=== PATIENT | male | born 1960 | race Asian ===

== ENCOUNTER 2019-05-06 16:03 | Inpatient (IN) | payer OTHER, MEDICAID ==
[~2019-05-06] VITALS: Ht 165.1 cm; Wt 77.1 kg
[2019-05-06 16:06] VITALS: Ht 165.1 cm; Wt 77.1 kg
--- NOTE | 2019-05-06 16:21 | NUR ---
PATIENT YENIFER [facility] COMING FROM [facility] WITH C/O CHEST PRESSURE THAT STARTED APPROXIMATELY 1330. PER PATIENT, HE HAD A SIMILAR INCIDENT 2 DAYS AGO. DENIES THE PAIN RADIATES ELSEWHERE. DENIES PAIN EXCEPT FOR THE CHEST AREA. STS THAT HE DOES NOT HAVE ANY SI, STS THAT HE IS STRESSED. STS THAT HE HAS ANXIETY FOR THE PAST [address] MARTELL AT BEDSIDE PERFORMED MSE
[2019-05-06 16:44] LABS: CALCIUM 9.1 mg/dL (8.5-10.1); CARBON DIOXIDE 29.4 mmol/L (21-32); CHLORIDE SERUM 100 mmol/L (98-107); CREATININE SERUM 0.8 mg/dL (0.7-1.3); GFR1 > 60 mL/min; GLUCOSE SERUM 268 mg/dL (74-106); SODIUM SERUM 137 mmol/L (136-145)
[2019-05-06 16:49] LABS: ALKALINE PHOSPHATASE 52 U/L (46-116); ALT/SGPT 39 U/L (16-63); AST/SGOT 12 U/L (15-37); BILIRUBIN TOTAL 0.2 mg/dL (0.20-1.00); TOTAL PROTEIN, SERUM 6.7 g/dL (6.4-8.2)
[2019-05-06 16:54] LABS: ALBUMIN 3.3 g/dL (3.4-5.0)
[2019-05-06 16:55] LABS: BASOPHIL % 0.2 % (0-2); PLATELET COUNT 252 x10^3mcL (130-400)
[2019-05-06 16:58] LABS: RED CELL DISTRIBUTION WIDTH 14.7 % (11.5-14.5)
[2019-05-06 17:05] LABS: T3 TOTAL 0.85 ng/mL
[2019-05-06 17:13] LABS: FREE T4 1.04 ng/dL (0.76-1.46); FREE THYROXINE INDEX 2.2 ug/dL (1.4-4.5); T4(THYROXINE) 6.4 ug/dL (4.7-13.3)
[2019-05-06 17:25] LABS: AMPHETAMINE QUAL UR NONE DETECTED (See below)
--- NOTE | 2019-05-06 17:35 | NUR ---
PATIENT RESTING AT BEDSIDE IN NAD. FAMILY AT BEDSIDE
--- NOTE | 2019-05-06 19:12 | NUR ---
REPORT RECIEVED FROM ANUJ RN. PT AWAKE AND ALERT, ANSWERING QUESTIONS APPROPRIATELY, SPEAKING IN FULL SENTENCES. PT REPORTS PAIN AT 4/10. VSS, RESPS E/U, NAD NOTED AT THIS TIME. NS RUNNING AT 150ML/HR. CALL LIGHT W/IN REACH. FAMILY AT BEDSIDE. WILL CONTINUE TO MONITOR.
--- NOTE | 2019-05-06 19:20 | NUR ---
REPORT OFF TO JOSY ZAZUETA
[2019-05-06] MEDS ORDERED: AMBIEN5 MG PO (21:16)
[2019-05-06] MEDS ORDERED: RISPERDAL0.25 MG (21:17)
--- NOTE | 2019-05-06 21:19 | NUR ---
SPOKE TO ED RN FROM [facility] TO PROVIDE UPDATE THAT PT WILL BE ADMITTED HERE.
--- NOTE | 2019-05-06 22:32 | NUR ---
REPORT GIVEN TO DEANDRA FERRIS
--- NOTE | 2019-05-06 22:54 | NUR ---
RECEIVED PT VIA [employer] FROM E/D, ACCOMPANIED BY RN AND TRANSPORTER. PT A/A/O X 4, COOPERATIVE TO CARE AT THIS TIME; EPISODES OF ANXIETY AMB VERBALIZATION OF VARIOUS HEALTH CONCERNS; CHANGES TO FLAT AFFECT DURING SAME CONVERSATION; DENIES S/I; ELOPEMENT RISK; SLUGGISH RESPONSES TO QUESTIONS; WEARS GLASSES (NOT W/ PT). PT W/ GENERALIZED WEAKNESS BUT ABLE TO AMBULATE W/ SLOW, STEADY GAIT; FALL RISK PROTOCOL IN PLACE. ON TELE # 4, HR 104, ST W/ ELEVATED T-WAVES, STATES INTERMITTENT CHEST PRESSURE 3/10 EXACERBATED BY NOTHING, BUT MODERATELY RELIEVED BY PAIN MEDICATION. NO ACUTE RESPIRATORY DISTRESS NOTED. ABD SOFT, ROUND, NON-TENDER, NORMOACTIVE BOWEL SOUNDS X 4 QUADS, LAST BM 05/05/19, LOOSE; REPORTS POOR PO INTAKE > 1 MONTH. IV SITE LH 20G, CDI. ORIENTED PT TO ROOM, BED CONTROLS, CALL LIGHT SYSTEM. SIDE RAILS UP X 2, BED IN LOW POSITION. WILL ENDORSE TO JOSY LIRIANO.
[2019-05-06 23:35] LABS: MAGNESIUM 2.2 mg/dL (1.8-2.4); PHOSPHOROUS 3.6 mg/dL (2.5-4.9)
--- NOTE | 2019-05-06 23:36 | NUR ---
PT COMPLAINS OF INSOMNIA, ADMINISTERED AMBIEN PER PHYSICIANS ORDER, WILL CONTINUE TO MONITOR.
[2019-05-06 23:39] VITALS: BP 138/88
--- NOTE | 2019-05-07 01:23 | NUR ---
PT SLEEPING IN BED WITH NO ACUTE DISTRESS NOTED AT THIS TIME, RESPIRATIONS EVEN AND INLABORED, SAFETY PRECAUTIONS IN PLACE, WILL CONTIUE TO MONITOR
[2019-05-07 01:36] LABS: microscopic required? NO
[2019-05-07 01:44] LABS: UA SPECIFIC GRAVITY 1.025 (1.005-1.035); urine erythrocyte NEGATIVE (NEGATIVE)
--- NOTE | 2019-05-07 02:40 | NUR ---
PT REMOVED CLOTHING AND URINATED ON FLOOR, REORIENTED PT AND TOOK PT TO RESTROOMS CALLED EVS AND FLOOR WAS CLEANED, PT LINENS AND GOWN REPLACED AND PT CLEANED AND RETURNED TO BED, SAFETY PRECAUTIONS IN PLACE, BED ALARM ON, WILL CONTINUE TO MONITOR.
[2019-05-07] MEDS ORDERED: SEROQUEL100 MG PO (04:57)
[2019-05-07] MEDS ORDERED: ZOLOFT100 MG PO (04:57)
[2019-05-07] MEDS ORDERED: RISPERIDONE2 M1 PO (04:57)
[2019-05-07] MEDS ORDERED: VIS25 PO (04:57)
--- NOTE | 2019-05-07 05:08 | NUR ---
PT HAD ONE EPISODE OF DISORIENTATION WHEN HE GOT UP IN THE MIDDLE OF THE NIGHT AND URINATED ON THE FLOOR, BUT PT WAS REORIENTED AND CLEANED UP AND WENT BACK TO BED, PT DENIED CHEST PAIN AND SOB THROUGH REMAINDER OF SHIFT, SAFETY PRECAUTIONS IN PLACE, WILL CONTINUE TO MONITOR
[2019-05-07 06:20] VITALS: BP 135/87
[2019-05-07 06:34] LABS: BASOPHIL % 0.3 % (0-2); PLATELET COUNT 230 x10^3mcL (130-400)
[2019-05-07 06:36] LABS: CALCIUM 8.6 mg/dL (8.5-10.1); CARBON DIOXIDE 30.3 mmol/L (21-32); CHLORIDE SERUM 104 mmol/L (98-107); CREATININE SERUM 0.7 mg/dL (0.7-1.3); GFR1 > 60 mL/min; GLUCOSE SERUM 184 mg/dL (74-106); POTASSIUM SERUM 4.2 mmol/L (3.5-5.1); SODIUM SERUM 140 mmol/L (136-145)
[2019-05-07 06:43] LABS: RED CELL DISTRIBUTION WIDTH 15.1 % (11.5-14.5)
--- NOTE | 2019-05-07 07:00 | NUR ---
RECEIVED BEDSIDE REPORT FROM EXTRACTION OPERATOR NURSE. PATIENT IS STABLE NO APPARENT SIGNS OF PAIN, SOB, OR RSPIRATORY DISTRESS, ON ROOM AIR. IV TO LEFT HAND IN SALINE THERESA. NO EDEMA OR ERYTHEMA NOTED TO SITE. PATIENT IS RSTING COMFORTABLY IN BED. CALL LIGHT AND PHONE WITHIN REACH, BED IN LOW POSITION. SAFETY PRECAUTIONS IN PLACE.
--- NOTE | 2019-05-07 07:25 | NUR ---
PHYSICAL ASSESSMENT COMPLETED.PLEASE SEE PROBLEM FOCUED CARE FOR DETAILS.
--- NOTE | 2019-05-07 08:22 | NUR ---
PATIENT IS STABLE NO APPARENT SIGNS OF PAIN, SOB, OR RESPIRATORY DISTRESS. PATIENT RESTING COMFORTABLY IN BED. DENIES OTHER NEEDS AT THIS TIME. HELPED PATIENT DIAL PHONE NUMBER TO CONTACT MOTHER. QUESTIONS AND CONCERNS ADDRESSED. SAFETY PRECAUTIONS IN PLACE.
--- NOTE | 2019-05-07 10:00 | NUR ---
ADMINISTERED MEDICATION PER EMAR. PATIENT EDUCATED ON NEED FOR MEDICATION WELL ADVERSE EFFECTS TO REPORT. PATIENT VERBALIZED UNDERSATNDING. TOLORTATED WELL. QUESTIONS AND CONCERNS ADDRESSED. PATIENT DENIES OTHER NEEDS AT THIS TIME. SAFETY PRECAUTIONS IN PLACE.
--- NOTE | 2019-05-07 12:21 | NUR ---
PATIENT ASKING TO SHOWER. SPOKE WITH MD ORTIZ HE WILL PLACE ORDER TO SHOWER.
[2019-05-07 12:49] VITALS: BP 140/94
--- NOTE | 2019-05-07 13:25 | NUR ---
PATIENT TAKE A SHOWER. IV COVERED. TELE REMOVED. PATIENT GIVEN TOWELS AND WASH CLOTH, NEW GOWN. QUESTIONS AND CONCERNS ADDRESSED. SAFETY PRECAUTIONS IN PLACE.
--- NOTE | 2019-05-07 14:10 | NUR ---
PATIENT OUT OF SHOWER. TOLORATED WELL. PLACED TELE. SAFETY PRECAUTIONS IN PLACE. QUESTIONS AND CONCERNS ADDRESSED. DENIES OTHER NEEDS AT THIS TIME.
--- NOTE | 2019-05-07 14:14 | NUR ---
FAMILY AT BEDSIDE. PATIENT IS STABLE NO APPARENT SIGNS OF PAIN, SOB, OR RESPIRATORY DISTRESS. DENIES OTHER NEEDS AT THIS TIME. SAFETY PRECAUTIONS IN PLACE.
--- NOTE | 2019-05-07 15:32 | NUR ---
MD ORTIZ AT BEDSIDE DISCUSSING CARE PLAN WITH PATIENT.
--- NOTE | 2019-05-07 15:33 | NUR ---
RECEIVED TRANSFER ORDER FOR PATIENT TO BE TRANSFERRED FROM TELE TO MED SURG. REMOVED AND RETURNED TELE. QUESTIONS AND CONCERNS ADDRESSED. SAFETY PRECAUTIONS IN PLACE. FAMILY AT BEDSIDE.
[2019-05-07 16:13] VITALS: BP 140/94
--- NOTE | 2019-05-07 17:43 | NUR ---
PATIENT IS STABLE, NO APPARENT SIGN SOF PAIN, SOB, OR RESPIRATORY DISTRESS. ON ROOM AIR. PATIENT PATIENT GIVEN DISCHARGE INSTRUCTINS. PATIENT AND FAMILY VERBALIZED INSTRUCTIONS. ALL PERSONAL BELONGINGS WITH PATIENT. IV REMOVED. ID BANDS REMOVED. PATIENT TAKEN DOWN TO LOBBY VIA WHEELCHAIR BY SALES REPRESENTATIVE [facility]. DISCHARGE COMPLETE.
[2019-05-07 17:47] VITALS: BP 144/98
== END 2019-05-07 18:00 | disposition home or self-care (01) | DRG 313 ==
LOC: ED 16:03 → DU 21:52 → MU 05-07 17:20
PROVIDERS: Emergency Medicine; ADMIT Internal Medicine
DX: R07.9 Chest pain, unspecified (principal); E44.0 Moderate protein-calorie malnutrition; F41.8 Other specified anxiety disorders; E11.65 Type 2 diabetes mellitus with hyperglycemia; F20.9 Schizophrenia, unspecified; Z68.28 Body mass index [BMI] 28.0-28.9, adult; Z79.84 Long term (current) use of oral hypoglycemic drugs
CPT/HCPCS: 82962; 83880; 84439; 85378; G0378; J2060; J7030